=== PATIENT | female | born 1940 | race Caucasian/White ===

== ENCOUNTER 2020-03-22 08:33 | Outpatient (CLI) | payer MEDICARE, OTHER, SELFPAY ==
--- NOTE | ~2020-03-22 | MR_ITS ---
EXAMINATION: MR brain/brain stem wo con EXAM DATE: 03/22/2020 10:18 INDICATION: Dizziness. Lightheadedness, syncope. TECHNIQUE: Magnetic resonance imaging (MRI) of the brain/brain stem obtained without contrast. Sagitt al T1, axial diffusion, gradient echo (T2*), T1, T2, FLAIR sequences obtained. There is no prior st udy for comparison. FINDINGS: There are no areas of restricted diffusion to suggest acute infarction. There is no acute hemorrhage seen on the T2*, a hemosiderin sensitive sequence. No intraparenchymal brain mass lesion. There is mild to moderate periventricular and subcortical T2/FLAIR signal hyperintensity, nonspecifi c but probably related to small vessel ischemic disease (microangiopathy). There is ventricular pro minence out of proportion to sulci which is suspected most likely central atrophy rather than hydroce phalus. Normal pressure hydrocephalus cannot be excluded (clinical triad ataxia/gait disturbance, de mentia, urinary incontinence). There are no extra-axial collections. Flow voids are seen in the ce rebral arteries on the T2-weighted sequences consistent with their expected patency, however there is diminutive caliber to the right internal carotid artery. Patient has had bilateral ocular lens surg harlan. Soft tissue is unremarkable. IMPRESSION: 1. Asymmetric, diminutive caliber to the right internal carotid artery; recommend carotid ultrasound for further evaluation. 2. Dilated ventricles most likely central atrophy. NPH not excludable. 3. 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 Reviewed, dictated and finalized at location B. IMPRESSION: 1. Asymmetric, diminutive caliber to the right internal carotid artery; recomm end carotid ultrasound for further evaluation. 2. Dilated ventricles most likely central atrophy. NPH not excludable. 3. 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
== END 2020-03-22 08:34 | disposition home or self-care (01) ==
LOC: ANHIMG 08:47
DX: R55 Syncope and collapse (principal); R93.0 Abnormal findings on diagnostic imaging of skull and head, not elsewhere classified
CPT/HCPCS: 70551

== ENCOUNTER → 2020-10-26 13:13 | Outpatient (CLI) | payer MEDICARE, OTHER, SELFPAY ==
--- NOTE | ~2020-10-26 | MM_ITS ---
EXAMINATION: MM screening amelia LT w ruy HISTORY: Screening mammogram, history of right mastectomy and reported left breast excisional biopsy TECHNIQUE: Craniocaudal and mediolateral oblique 3-D tomosynthesis images were obtained and synthetic 2-D images were generated. CAD analysis was submitted and interpreted. COMPARISON: No prior mammogram is available for comparison at this institution. BREAST PARENCHYMAL COMPOSITION: There are scattered areas of fibroglandular density. FINDINGS: Architectural distortion is present in the upper outer quadrant of the breast with associat ed skin retraction. No suspicious calcification is identified. IMPRESSION: 1. Architectural distortion in the upper outer quadrant of the left breast which is likely related to prior excisional biopsy. 2. Comparison with prior mammograms is necessary. BI-RADS Category 0: Incomplete: Needs comparison with prior mammograms. Reviewed, dictated and finalized at location A. ET EXAMINER IMPRESSION: 1. Architectural distortion in the upper outer quadrant of the left breast whic h is likely related to prior excisional biopsy. 2. Comparison with prior mammograms is necessary. BI-RADS Category 0: Incomplete: Needs comparison with prior mammograms.
--- NOTE | ~2020-10-26 | DEXA_ITS ---
Bone Density Report Name: Bela Spangler Age: 80 Sex: Female Ethnicity: White Date of : 1940 Indication: postmenopausal; screening for osteoporosis; height loss; hysterectomy; Referring Provider: OSMANY CUNNINGHAM Study: Bone densitometry was performed. Exam Date: October 26, 2020 Accession number: [id number] Bone Density: Region BMD T-score Z-score Classification AP Spine (L1-L4) 0.831 -2.0 0.8 Osteopenia Femoral Neck (Left) 0.581 -2.4 -0.1 Osteopenia Total Hip (Left) 0.712 -1.9 0.2 Osteopenia Femoral Neck (Right) 0.623 -2.0 0.3 Osteopenia Total Hip (Right) 0.692 -2.0 0.1 Osteopenia Total Hip Mean 0.702 -2.0 0.2 Osteopenia World Health Organization criteria for BMD impression classify patients as: Normal (T-score at or above -1.0), Osteopenia (T-score between -1.0 and -2.5), or Osteoporosis (T-score at or below -2.5). 10-year Fracture Risk(1): Major Osteoporotic Fracture 18% Hip Fracture 5.9% Reported Risk Factors: [place] (), Neck BMD=0.581, BMI=28.1 (1) FRAX(R) Version 3.08. Fracture probability calculated for an untreated patient. Fracture probability may be lower if the patient has received treatment. Clinical Information Provided by Patient: Has used the following medications: Vitamin D, Calcium, MTV Has the following medical conditions: Hysterectomy, breast cancer in 2007 and 2018 Patient maximum height was 62 Menopause Age: 34 No regular weight bearing exercise Onset of menses at age 11 Number of children 3 Impression: The patient has low bone mass, based on the Left Femoral Neck T-score. The patient has an estimated ten-year risk of hip fracture of 5.9% and an estimated ten-year risk of major fracture of 18%, based on the WHO FRAX algorithm. Discussion: BONE DENSITY IS LOW AT ONE OR MORE SKELETAL SITES. THE PATIENT'S BMD AND CLINICAL RISK FACTORS CONTRIBUTE TO THIS PATIENT'S INCREASED RISK OF FRACTURE. This patient's lowest T-score is low at one or more skeletal sites. It meets the World Health Organization's (WHO) criteria for ?low bone mass? (T-score between -1.0 and -2.5). The patient's 10-year risk of hip fracture as calculated by FRAX exceeds the threshold where pharmacological therapy is recommended by the National Osteoporosis Foundation (NOF). However, all treatment decisions require clinical judgment and consideration of individual patient factors, including patient preferences, comorbidities, previous drug use, risk factors not captured in the FRAX model (e.g., frailty, falls, vitamin D deficiency, increased bone turnover, interval significant decline in bone density) and possible under or overestimation of fracture risk by FRAX. The patient should follow a healthful lifestyle (good nutrition with adequate calcium and vitamin D, and appropriate weight-bear
== END ==
PROVIDERS: PCP Emergency Medicine; Visit Provider Emergency Medicine
DX: Z12.31 Encounter for screening mammogram for malignant neoplasm of breast (principal); Z78.0 Asymptomatic menopausal state; M85.89 Other specified disorders of bone density and structure, multiple sites; R92.8 Other abnormal and inconclusive findings on diagnostic imaging of breast
CPT/HCPCS: 77063; 77067; 77080

== ENCOUNTER 2021-04-23 09:53 | Emergency (ER) | payer MEDICARE, SELFPAY ==
[2021-04-23] VITALS (8 sets, daily range): BP systolic 159–176; BP diastolic 61–91; PULSE 71–84; RESP 12–19; O2SAT 90–98
--- NOTE | ~2021-04-23 | CT_ITS ---
EXAMINATION: CT cervical spine wo con DATE: 04/23/2021 11:40 INDICATION: Neck pain post fall TECHNIQUE: Computed tomography (CT) of the cervical spine was performed without intravenous contrast. Automated exposure control and iterative reconstruction technique were employed. The dose-length pro duct was 151.23 mGy-cm. COMPARISON: None FINDINGS: Cervical dextrocurvature. Sagittal alignment is normal. 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 Vertebral body heights are normal. No fracture. Mild to moderate disc height loss at C4-C5 and C6-C7, both with posterior disc osteophyte complexes resulting in mild central canal stenosis. M ild disc height loss at C2-C3, C3-C4 and C6-C7. Multilevel severe facet osteoarthritis throughout the left side of the cervical spine and moderate to severe facet osteoarthritis at the right side of the cervical spine. Multilevel mild bilateral cervical neural foraminal stenosis. Atherosclerotic calcif ications along the bilateral carotid arteries. Cervical soft tissues are otherwise unremarkable. Mild emphysema and mild pleural parenchymal scarring at the bilateral apices. IMPRESSION: 1. Mild cervical dextrocurvature with moderate spondylosis. No acute osseous abnormality. 2. Mild emphysema. Reviewed, dictated and finalized at location A. IMPRESSION: 1. Mild cervical dextrocurvature with moderate spondylosis. No acute osseous ab normality. 2. Mild emphysema.
--- NOTE | ~2021-04-23 | CT_ITS ---
EXAMINATION: CT chest abdomen pelvis w con DATE: 04/23/2021 13:31 INDICATION: Rib fracture post fall TECHNIQUE: Computed tomography (CT) of the chest, abdomen, and pelvis was performed with 100 mL Omnip aque-350 intravenous contrast. Automated exposure control and iterative reconstruction technique were employed. The dose-length product was 781.12 mGy-cm. COMPARISON: None FINDINGS: CHEST CT: Mild emphysema. 12 mm groundglass nodule in the left upper lobe. Approximately 1.6 x 0.9 cm nodule wi th spiculated margins and mild surrounding groundglass opacity in the right upper lobe. Additional 4 mm left lower lobe nodule. No pulmonary edema, pleural effusion or pneumothorax. Heart size is normal . Atherosclerotic coronary artery calcification. No pericardial effusion. Thoracic aorta is normal in caliber with no dissection or traumatic aortic injury is severe >70% stenosis at the origin of the i nnominate artery. No pathologically enlarged abdominal or pelvic lymphadenopathy. Moderate-sized slid ing-type hiatal hernia. Minimally displaced fracture at the anterolateral left third rib. Possible no ndisplaced anterolateral left second and fourth rib fractures. Postoperative change of prior right ma stectomy and right axillary lymph node dissection. Thoracic dextroscoliosis with mild to moderate spo ndylosis. ABDOMEN/PELVIS CT: Multiple gallstones within the decompressed gallbladder. No pericholecystic inflammatory change to sinha ggest acute cholecystitis. Liver, spleen, pancreas and bilateral adrenal glands are normal. Bilateral renal cysts the largest on the right measuring 1.9 cm. There is moderate colonic diverticulosis with a sigmoid predominance. There is no adjacent inflammatory change to suggest diverticulitis. There i s a small thickening the distal ileum without surrounding inflammatory stranding which could be relat ed to an ileitis either acute or chronic. No bowel obstruction. The appendix is not visualized. No pe ricecal inflammatory change to suggest acute appendicitis. Bladder is normal. The uterus is not ident ified and has likely been surgically resected. Lumbar levoscoliosis with mild to moderate spondylosis . IMPRESSION: 1. Minimally displaced left third rib fracture with possible nondisplaced fracture of the adjacent se cond and fourth ribs. No pneumothorax. 2. 1.6 x 0.9 cm nodule with surrounding groundglass opacity in the right upper lobe and 12 mm groundg lass nodule in the left upper lobe. Differential includes infectious/inflammatory etiologies as well as malignancy. Recommend 3 month follow-up chest CT. 3. Moderate-sized sliding-type hiatal hernia. 4. Cholelithiasis. 5. Wall thickening in the distal ileum without surrounding inflammatory stranding which could represe nt an ileitis either acute or chronic and which could be either infectious, inflammatory or less like ly ischemic in etiology. 6. Diverticulosis. 7. 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 8. Mild emphysema. Reviewed, dictated and finalized at location A. IMPRESSION: 1. Minimally displaced left third rib fracture with possible nondisplaced fract ure of the adjacent second and fourth ribs. No pneumothorax. 2. 1.6 x 0.9 cm nodule with surrounding groundglass opacity in the right upper lobe and 12 mm groundglass nodule in the left upper lobe. Differential includes infectious/inflammatory etiologies as well as malignancy. Recommend 3 month fo llow-up chest CT. 3. Moderate-sized sliding-type hiatal hernia. 4. Cholelithiasis. 5. Wall thickening in the distal ileum without surrounding inflammatory strandi ng which could represent an ileitis either acute or chronic and which could be either infectious, inflammatory or less likely ischemic in etiology. 6. Dive
--- NOTE | ~2021-04-23 | XR_ITS ---
EXAMINATION: [id number]_CR DATE: 04/23/2021 11:49 INDICATION: Anterolateral left rib pain post fall TECHNIQUE: A frontal inspiratory view of the chest and 3 views of the left ribs were obtained. COMPARISON: None FINDINGS: Minimally displaced fractures of the anterolateral left second-fifth ribs. No other fractures identif ied. Lungs are clear with no focal airspace opacities, pulmonary edema, pleural effusion or pneumotho rax. Heart size is within normal limits for AP technique. Tortuous atherosclerotic thoracic aorta. S- shaped thoracolumbar scoliosis with mild spondylosis. Postoperative change of likely right breast exc isional biopsy with multiple surgical clips. IMPRESSION: 1. Minimally displaced left second-fifth rib fractures. 2. No pneumothorax or other acute cardiopulmonary disease. Reviewed, dictated and finalized at location A.
--- NOTE | ~2021-04-23 | CT_ITS ---
EXAMINATION: CT brain wo con DATE: 04/23/2021 11:40 INDICATION: Fall with head injury TECHNIQUE: Computed tomography (CT) of the head was performed without intravenous contrast. Sagittal and coronal reconstructions were performed. The mA was adjusted according to patient size. Iterative reconstruction technique was employed. The dose-length product was 605.33 mGy-cm. COMPARISON: MR dated 03/22/2020 FINDINGS: Small left frontal scalp hematoma. No fracture. No acute intracranial hemorrhage, acute infarction or abnormal extra axial fluid collection. There is mild scattered white matter hypoattenuation consiste nt with chronic small vessel ischemic disease. Unchanged enlargement of the ventricles which is dispr oportionate to the sulci with differential including moderate central predominant atrophy or normal p ressure hydrocephalus. No mass/mass effect. Changes of bilateral intraocular lens replacement. Status post left mastoidectomy. Unchanged small right mastoid effusion. The orbitsand paranasal sinuses are normal. Intracranial calcified cerebral atherosclerosis is noted. IMPRESSION: 1. No calvarial fracture or acute intracranial process. 2. Unchanged symmetric dilation of ventricles disproportionate to the sulci which could be related to central predominant atrophy or normal pressure hydrocephalus (NPH: clinical triad ataxia/gait distur bance, dementia, urinary incontinence). 3. Mild scattered white matter hypoattenuation consistent with chronic small vessel ischemic disease. Reviewed, dictated and finalized at location A. IMPRESSION: 1. No calvarial fracture or acute intracranial process. 2. Unchanged symmetric dilation of ventricles disproportionate to the sulci whi ch could be related to central predominant atrophy or normal pressure hydroceph alus (NPH: clinical triad ataxia/gait disturbance, dementia, urinary incontinen ce). 3. Mild scattered white matter hypoattenuation consistent with chronic small ve ssel ischemic disease.
--- NOTE | 2021-04-23 10:05 | ECG_ITS ---
Measurements Intervals [place] Rate: 80 P: 26 AR: 144 QRS: -32 QRSD: 102 T: 119 QT: 391 QTc: 452 Interpretive Statements SINUS RHYTHM LEFT AXIS DEVIATION LEFT VENTRICULAR HYPERTROPHY AND ST-T CHANGE BORDERLINE T WAVE ABNORMALITY- LATERAL LEADS BASELINE ARTIFACT- I, II, III, AVR, AVF, V3-V6 BORDERLINE ECG Electronically Signed On 04-23-2021 11:47:27 CDT by Missael Bradley D.O.
[2021-04-23 10:25] LABS: Basophils Percent Auto 0.4 % (0.2-1.2); Eosinophils Absolute Auto 0.3 K/mm3 (0-0.3); Hematocrit 45.4 % (37.0-47.0); Hemoglobin 14.7 g/dL (12.0-15.0); Immature Granulocyte Absolute 0.06 K/mm3 (0.00-0.031); Immature Granulocyte Percent A 0.6 % (0-0.5); Lymphocytes Absolute Auto 0.82 K/mm3 (0.9-3.2); Lymphocytes Percent Auto 7.7 % (18.3-44.2); Mean Corpuscular HGB Conc 32.4 g/dl (32-36); Mean Corpuscular Volume 89.5 fl (80-100); Monocytes Absolute Auto 0.7 K/mm3 (0.1-0.6); Monocytes Percent Auto 6.7 % (2.6-8.5); Neutrophils Absolute Auto 8.7 K/mm3 (1.3-6.7); Neutrophils Percent Auto 81.6 % (45.5-73.1); Platelet Count Result 184 k/mm3 (150-375); Red Blood Count 5.07 M/mm3 (4.2-5.4); Red Cell Distribution Width 11.9 % (11.5-14.5); White Blood Count 10.6 K/mm3 (4.5-10.0)
[2021-04-23 10:58] LABS: Anion Gap 13 mmol/L (8-16); Blood Urea Nitrogen 8 mg/dL (7-17); Calcium 10.9 mg/dL (8.4-10.2); Carbon Dioxide 29 mmol/L (22-30); Chloride 99 mmol/L (98-107); Estimated CRCL calculation 55 ml/min; Estimated Glomerular Filt Rate > 60; Glucose 157 mg/dL (65-110); Potassium 3.8 mmol/L (3.4-5.0); Sodium 141 mmol/L (137-145)
--- NOTE | 2021-04-23 11:30 | ED.GENADULT ---
HPI - General Adult General Chief complaint: Fall Stated complaint: fall - head pain, thumb pain Time Seen by Provider: 04/23/21 10:18 Source: patient History of Present Illness HPI narrative: Patient is a 80 y/o female complaining of a fall about 5 hours ago in the bathroom. She states that she fell and landed on her left side. She states that she fell because she bent over to pull her pants and lost balance. She hit her head on the ground. She also has some neck pain and left rib pain. She describes her rib pain as sharp and rates it as 8/10. Her pain is worse with movement. She also has some chronic back pain unchanged from baseline. She has no abdominal pain. She had brief loss of consciousness after the fall. She was able to get up on her own after the fall. She is able to ambulate without assistance since the fall. She has no focal weakness or numbness. Related Data Home Medications Medication Instructions Recorded Confirmed aspirin 81 mg tablet,delayed See Rx Instructions .ROUTE .COMPLEX 04/12/20 08/23/20 release atorvastatin 40 mg tablet See Rx Instructions .ROUTE .COMPLEX 04/12/20 08/23/20 calcium 600 mg-D3 800 unit-mag11 See Rx Instructions .ROUTE .COMPLEX 04/12/20 08/23/20 50 hq-kuqp-hnvgis-stephan-s.borat tablet cholecalciferol (vitamin D3) 25 See Rx Instructions .ROUTE .COMPLEX 04/12/20 08/23/20 mcg (1,000 unit) capsule ferrous sulfate 325 mg (65 mg See Rx Instructions .ROUTE .COMPLEX 04/12/20 08/23/20 iron) tablet multivitamin See Rx Instructions .ROUTE .COMPLEX 04/12/20 08/23/20 Allergies Allergy/AdvReac Type Severity Reaction Status Date / Time latex Allergy Unknown Unknown Verified 04/23/21 10:18 neomycin Allergy Unknown Unknown Verified 04/23/21 10:18 Review of Systems Constitutional: Constitutional: Reports as per HPI, Denies chills, Denies fever(s), Denies headache(s) and Denies weakness Eyes: Eyes: Denies blurry vision ENT: Reports headache(s) and Reports neck pain Cardiovascular: Cardiovascular: Denies chest pain and Denies dyspnea Respiratory: Respiratory: Reports as per HPI, Denies cough and Denies dyspnea Gastrointestinal: Gastrointestinal: Denies abdominal pain, Denies diarrhea, Denies nausea and Denies vomiting Genitourinary: Genitourinary: Denies hematuria and Denies dysuria Musculoskeletal: Musculoskeletal: Reports back pain and Reports neck pain Neurologic: Reports headache(s) and Denies weakness [facility] Past Medical History Medical History (Updated 04/23/21 @ 15:08 by Priya Garcia MD) Clotting disorder (~2003) FH: carotid endarterectomy (~03/09/15) Hernia (~2005) Surgical History Surgical History H/O bladder repair surgery (~2005) H/O right mastectomy (~2007) H/O: hysterectomy (~1974) History of breast lump removal (~1983) History of removal of both ovaries (~1984) Family History Family History Father , 73 Heart abnormality Mother , 49 Cancer Social History Social History Social History: 1 cup of coffee per day Smoking status: Former smoker Smoking end date: 09/23/14 Alcohol intake: never Substance use: never Gender identity (if verbalized by the patient): Female Exam Const: General: no acute distress and well developed Orientation/consciousness: oriented to person, oriented to place, oriented to time and patient oriented x3 HENMT: Head: normocephalic and hematoma left frontal Ears: external ears normal General nose exam: Normal external nose present Eyes: General: appearance normal, both eyes and all related structures Conjunctivae: conjunctivae normal Neck: Neck: normal visual inspection and full ROM Chest: Chest palpation & inspection: normal inspection of the chest and tenderness rib (left side) Resp: Effort & Inspection: normal respiratory effort
[2021-04-23] MEDS: traMADol HCL (*CRX) 50 MG TABLET PO (13:45)
[2021-04-23] MEDS: TETANUS,DIPHTHERIA,AC PERTUSSIS ADULT (0.5 ML) BOOSTRIX IM (13:45)
== END 2021-04-23 15:50 | disposition home or self-care (01) ==
PROVIDERS: Emergency Provider Emergency Medicine; PCP Emergency Medicine
DX: S22.42XA Multiple fractures of ribs, left side, initial encounter for closed fracture (principal); S00.83XA Contusion of other part of head, initial encounter; I70.8 Atherosclerosis of other arteries; Z23 Encounter for immunization; I10 Essential (primary) hypertension; E78.00 Pure hypercholesterolemia, unspecified; Z85.3 Personal history of malignant neoplasm of breast; Z90.11 Acquired absence of right breast and nipple; Z87.891 Personal history of nicotine dependence; R94.31 Abnormal electrocardiogram [ECG] [EKG]; I51.7 Cardiomegaly; M47.812 Spondylosis without myelopathy or radiculopathy, cervical region; J43.9 Emphysema, unspecified; R91.1 Solitary pulmonary nodule; K80.20 Calculus of gallbladder without cholecystitis without obstruction; K44.9 Diaphragmatic hernia without obstruction or gangrene; K57.90 Diverticulosis of intestine, part unspecified, without perforation or abscess without bleeding; Z79.82 Long term (current) use of aspirin; W01.0XXA Fall on same level from slipping, tripping and stumbling without subsequent striking against object, initial encounter
CPT/HCPCS: 36415; 70450; 71101; 71260; 72125; 74177; 80048; 85025; 90471; 90715; 93005; 96372; 99284; A9270; Q9967

== ENCOUNTER 2021-08-29 09:38 | Outpatient (CLI) | payer MEDICARE, SELFPAY ==
--- NOTE | ~2021-08-29 | US_ITS ---
EXAMINATION: US thyroid DATE: 08/29/2021 10:03 INDICATION: Other specified abnormal findings of blood chemistry. TECHNIQUE: Multiple ultrasound images of the thyroid were obtained. COMPARISON: None. FINDINGS: The right thyroid lobe measures 2.9 x 1.9 x 1.4 cm. The left thyroid lobe measures 3.0 x 0.9 x 1.2 c m. In the right thyroid lobe, there is a 6 mm solid, very hypoechoic, rhdrz-wuxh-aqcz nodule with sm ooth margin with punctate echogenic focus (TI-RADS TR5). In the right thyroid lobe, there is a 5 mm s olid, very hypoechoic, wider than tall nodule with lobulated margin and punctate echogenic focus (TR5 ). There are multiple nodules smaller than 5 mm. IMPRESSION: 1. Small thyroid nodules. Consider thyroid ultrasound in one year if clinically indicated given the p atient's age. Reviewed, dictated and finalized at location A. WAY YARD ASSISTANT IMPRESSION: 1. Small thyroid nodules. Consider thyroid ultrasound in one year if clinically indicated given the patient's age.
== END 2021-08-29 09:39 | disposition home or self-care (01) ==
LOC: ANHIMG 09:40
PROVIDERS: PCP Emergency Medicine; Visit Provider Emergency Medicine
DX: R79.89 Other specified abnormal findings of blood chemistry (principal); E04.2 Nontoxic multinodular goiter
CPT/HCPCS: 76536

== ENCOUNTER 2022-09-09 18:43 | Inpatient (IN) | payer MEDICARE, OTHER, SELFPAY ==
--- NOTE | ~2022-09-09 | CT_ITS ---
EXAMINATION: CT cervical spine wo con DATE: 09/09/2022 20:13 INDICATION: Syncopal episode and fall with head injury TECHNIQUE: Computed tomography (CT) of the cervical spine was performed without intravenous contrast. Automated exposure control and iterative reconstruction technique were employed. The dose-length pro duct was 112.34 mGy-cm. COMPARISON: None FINDINGS: 15 degrees lower cervical dextrocurvature and likely similar degree of upper thoracic levocurvature. Sagittal alignment is normal. Vertebral body heights are normal. No fractures. Severe osteoarthritis at the atlantoaxial articulation and at the articulation of the lateral mass of C1 and C2. Moderate d isc height loss at C4-C5 with small posterior disc osteophyte complex resulting in mild central canal stenosis at this level. Mild left-sided disc height loss at C5-C6 and C6-C7. Severe uncovertebral os teoarthritis on the left at C4-C5. Mild to moderate uncovertebral osteoarthritis at multiple addition al lesions in the cervical spine. Multilevel severe left-sided and moderate to severe right-sided cer vical facet osteoarthritis. This contributes to moderate neural foraminal stenosis on the left at C3- C4 and mild neural foraminal stenosis at a few additional levels throughout the cervical spine at bot h the left and right. Mild biapical pleural-parenchymal scarring. Atherosclerotic calcification at th e bilateral carotid bulbs. Sialolithiasis with multiple small punctate calcifications in the bilatera l parotid glands. Cervical soft tissues are otherwise unremarkable. IMPRESSION: 1. Mild cervical dextrocurvature with moderate spondylosis but without acute osseous abnormality. Reviewed, dictated and finalized at location A. RAL STERILE TECHNICIAN IMPRESSION: 1. Mild cervical dextrocurvature with moderate spondylosis but without acute os seous abnormality.
--- NOTE | ~2022-09-09 | CT_ITS ---
EXAMINATION: CT brain wo con DATE: 09/10/2022 03:10 INDICATION: Acute subarachnoid hemorrhage. TECHNIQUE: Computed tomography (CT) of the head was performed without intravenous contrast. The mA wa s adjusted according to patient size. Iterative reconstruction technique was employed. The dose-lengt h product was 681.00 mGy-cm. COMPARISON: Head CT 09/09/2022 FINDINGS: There are scattered areas of low attenuation in the cerebral white matter. Again seen is ac [place] subarachnoid hemorrhage anterior to right frontal lobe. There is no acute ischemic infarct or abn ormal mass lesion. The ventricles are normal in size. The paranasal sinuses are clear. There are like ly changes of ocular lens replacement surgeries. There are changes of left mastoidectomy. There is a right otomastoid effusion. There is a right frontal scalp laceration. IMPRESSION: 1. Stable small volume of acute subarachnoid hemorrhage anterior to right frontal lobe. 2. Stable mild nonspecific cerebral white matter disease, which likely represents chronic small vesse l ischemic disease. Reviewed, dictated and finalized at location A. OF INSTRUCTION IMPRESSION: 1. Stable small volume of acute subarachnoid hemorrhage anterior to right front al lobe. 2. Stable mild nonspecific cerebral white matter disease, which likely represen ts chronic small vessel ischemic disease.
--- NOTE | ~2022-09-09 | XR_ITS ---
EXAMINATION: XR chest 1V portable DATE: 09/09/2022 23:21 INDICATION: Syncope. TECHNIQUE: A single frontal view of the chest was obtained. COMPARISON: Chest single view 04/23/2021, chest CT 04/23/2021 FINDINGS: The patient is rotated to her left. There is mild scarring at the lung apices. There are ch ronic airspace opacities in peripheral right midlung zone, consistent with scarring. There are airspa ce opacities in the lower lung zones. No pleural effusion or pneumothorax. Cardiomegaly is noted. The re is a moderate-sized hiatal hernia. There are surgical clips in right chest wall. IMPRESSION: 1. Airspace opacities in the lower lung zones, consistent with atelectasis/scarring versus pneumonia. 2. Stable scarring at the lung apices and in lateral right midlung zone. 3. Moderate-sized hiatal hernia. 4. Cardiomegaly. Reviewed, dictated and finalized at location A. STMAS TREE FARM MANAGER IMPRESSION: 1. Airspace opacities in the lower lung zones, consistent with atelectasis/scar ring versus pneumonia. 2. Stable scarring at the lung apices and in lateral right midlung zone. 3. Moderate-sized hiatal hernia. 4. Cardiomegaly.
--- NOTE | ~2022-09-09 | CT_ITS ---
EXAMINATION: CTA BRAIN/CAROTID DATE: 09/10/2022 14:34 INDICATION: Syncope TECHNIQUE: Computed tomographic angiography (CTA) of the head and neck was performed with 100 mL Omni paque-350 intravenous contrast. Multiplanar reconstructions and maximum intensity projection 3D-recon structions of the carotid arteries and of the intracranial arteries were created by the technologist on a separate workstation. Precontrast CT of the head was also obtained. Automated exposure control and iterative reconstruction technique were employed.The dose-length product was 987.63 mGy-cm. COMPARISON: None. FINDINGS: Carotid arteries: Normal caliber aortic arch with no aneurysm, dissection or hemodynamically significant stenosis. Ther e is a likely near occlusion stenosis with no discernible contrast filled lumen at the origin but tin y contrast opacified lumen more distally extending to the bifurcation into the right common iliac and right subclavian arteries were there is additional atherosclerotic plaque with moderate 50-69% steno sis. Scattered atherosclerotic plaque without hemodynamically significant stenosis along the left com mon carotid artery. There is 60% stenosis of the right carotid bulb relative to normal distal artery lumen diameter (NASCET criteria). There is small amount of atherosclerotic plaque with 0% stenosis of the left carotid bulb relative to normal distal artery lumen diameter. Left vertebral artery is gurpreet nant. Multifocal moderate stenosis along the proximal right vertebral artery. Cervical soft tissues a re unremarkable. Mild emphysema in the visualized upper lungs. Persistent curved subpleural bandlike opacity at the periphery of the right upper lobe, the cephalad portion of which appears unchanged but with some more caudal extension. Moderate cervical spondylosis. Intracranial arteries Left vertebral artery is dominant. There is multifocal moderate 50-69% stenosis of the intracranial r ight vertebral artery. Small amount of atherosclerotic plaque without hemodynamically significant fred nosis along the intracranial left vertebral artery. There is no hemodynamically significant stenosis in the basilar artery. Multifocal atherosclerotic plaque at the bilateral carotid siphons without hem odynamically significant stenosis. 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 For reference the cephalad extracranial portion of the left internal carotid artery measures up to 5 mm in maximal diameter. The bilateral A1 and P1 segments are patent. Cerebral hipolito rial arborization appears symmetric. IMPRESSION: 1. 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 2. 60% stenosis of the right carotid bulb relative to normal distal artery lumen diameter (NASCET cri teria). 2. Small amount of atherosclerotic plaque with 0% stenosis of the left carotid bulb relative to kiley l distal artery lumen diameter. 3. Left vertebral artery is dominant with multifocal moderate stenosis along the proximal extracrania l right as well as the intracranial right vertebral artery. 4. 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 5. Mild emphysema with increase in the caudal aspect of a curved bandlike subpleural opacity at the p eriphery of the right upper lobe. The configuration and pattern of progression favoring atelectasis/s carring over malignancy but would consider PET/CT for further evaluation. Reviewed, dic
--- NOTE | ~2022-09-09 | US_ITS ---
EXAMINATION: US carotid duplex BI DATE: 09/10/2022 14:25 INDICATION: Syncope TECHNIQUE: Grayscale, color Doppler, and pulsed Doppler images of the cervical carotid arteries were obtained. The degree of vessel stenosis is placed in one of the following categories: normal, <50%, 5 0-69%, >=70% but less than near-occlusion, near-occlusion, or total occlusion. Note that percent sten osis relative to normal distal artery lumen diameter is indirectly measured from velocity measurement s as described by Hansel, et al. Radiology 2003; 229:340-346. COMPARISON: None. FINDINGS: RIGHT: The right common carotid artery (CCA) peak systolic velocity (PSV) is 53 cm/s. The right internal car otid artery (ICA) PSV is 100 cm/s. The right ICA end-diastolic velocity (EDV) is 32 cm/s. The right I CA/CCA PSV ratio is 1.9. Grayscale and color Doppler images yield an estimate of <50% diameter reduct ion from plaque in the ICA. The external carotid artery (ECA) PSV is 82 cm/s. There is antegrade flow in the right vertebral artery. LEFT: The left CCA PSV is 232 cm/s. There is extensive atherosclerotic plaque throughout the right common c arotid artery which demonstrates parvus and tardus waveforms with widened systolic peaks suggesting m ore proximal hemodynamically significant stenosis. The left ICA PSV is 183 cm/s. The left ICA EDV is 35 cm/s. The left ICA/CCA PSV ratio is 0.8. Grayscale and color Doppler images including secondary Do ppler criteria yield an estimate of <50% diameter reduction from plaque in the ICA. The elevated [place] in the left common and internal carotid arteries may be due to the likely significant stenosis at the contralateral right common carotid artery. The ECA PSV is 269 cm/s. There is antegrade flow i n the left vertebral artery. IMPRESSION: 1. <50% stenosis in the right internal carotid artery. 2. <50% stenosis in the left internal carotid artery. 3. Prominent atherosclerotic plaque with parvus and tardus waveforms in the mid right common carotid artery suggesting a more proximal hemodynamically significant stenosis. Reviewed, dictated and finalized at location B. WEAVER IMPRESSION: 1. <50% stenosis in the right internal carotid artery. 2. <50% stenosis in the left internal carotid artery. 3. Prominent atherosclerotic plaque with parvus and tardus waveforms in the mid right common carotid artery suggesting a more proximal hemodynamically signifi cant stenosis.
--- NOTE | ~2022-09-09 | CT_ITS ---
EXAMINATION: CT brain wo con DATE: 09/09/2022 20:13 INDICATION: Syncopal episode with fall and head injury with laceration to the right forehead TECHNIQUE: Computed tomography (CT) of the head was performed without intravenous contrast. Sagittal and coronal reconstructions were performed. The mA was adjusted according to patient size. Iterative reconstruction technique was employed. The dose-length product was 605.33 mGy-cm. COMPARISON: head CT dated 04/23/21 FINDINGS: Small right frontal scalp hematoma with laceration along the superolateral right orbital rim. No frac ture. Changes of bilateral intraocular lens replacement. Orbits are otherwise unremarkable. Small sub arachnoid hemorrhage along a gyrus in the anterior right frontal lobe immediately underlying the andrzej on of trauma. No acute intracranial acute infarction. There is mild scattered white matter hypoattenu ation consistent with chronic small vessel ischemic disease. Unchanged enlargement of the ventricles which is disproportionate to the sulci with differential including moderate central predominant atro phy or normal pressure hydrocephalus. No mass/mass effect. Status post left mastoidectomy. Unchanged small right mastoid effusion. Paranasal sinuses are normal. Intracranial calcified cerebral atheroscl erosis is noted. IMPRESSION: 1. Small subarachnoid hemorrhage along a gyrus of the anterior right frontal lobe. Dr. Wei discussed these findings with Dr. Crawley at 8:20 PM. 2. Unchanged symmetric dilation of ventricles disproportionate to the sulci which could be related to central predominant atrophy or normal pressure hydrocephalus (NPH: clinical triad ataxia/gait distur bance, dementia, urinary incontinence). 3. Mild scattered white matter hypoattenuation consistent with chronic small vessel ischemic disease. Reviewed, dictated and finalized at location A. CENTER RN IMPRESSION: 1. Small subarachnoid hemorrhage along a gyrus of the anterior right frontal lo be. Dr. Wei discussed these findings with Dr. Crawley at 8:20 PM. 2. Unchanged symmetric dilation of ventricles disproportionate to the sulci whi ch could be related to central predominant atrophy or normal pressure hydroceph alus (NPH: clinical triad ataxia/gait disturbance, dementia, urinary incontinen ce). 3. Mild scattered white matter hypoattenuation consistent with chronic small ve ssel ischemic disease.
--- NOTE | ~2022-09-09 | XR_ITS ---
EXAMINATION: XR wrist RT 2V DATE: 09/09/2022 23:14 INDICATION: Right wrist pain. Fall. TECHNIQUE: 2 views of right wrist were obtained. COMPARISON: None. FINDINGS: Bone alignment is normal. There is diffuse osteopenia. No fracture. There is severe osteoar thritis of distal radioulnar joint and first carpometacarpal joint. IMPRESSION: 1. Polyarticular osteoarthritis. Reviewed, dictated and finalized at location A. NISTRATIVE JUDGE
[2022-09-09 18:47] VITALS: BP 137/61; PULSE 68; RESP 18; TEMP 36.4; O2SAT 100
--- NOTE | 2022-09-09 19:54 | PC.NURSE ---
multiple lacs to pt forehead, dressing placed.
[2022-09-09 20:45] VITALS: BP 215/66; PULSE 72; RESP 16; O2SAT 98
[2022-09-09 21:13] VITALS: BP 208/77; PULSE 71; RESP 20; O2SAT 96
--- NOTE | 2022-09-09 21:14 | ED.SYNCOPE ---
HPI - Syncope General Chief Complaint: Syncope <Luis Daniel Crawley MD - Last Filed: 09/12/22 19:20> Stated Complaint: fall <Luis Daniel Crawley MD - Last Filed: 09/12/22 19:20> Time Seen by Provider: 09/09/22 20:40 <Luis Daniel Crawley MD - Last Filed: 09/12/22 19:20> Source: patient, family and EMS <Luis Daniel Crawley MD - Last Filed: 09/12/22 19:20> Mode of arrival: EMS <Luis Daniel Crawley MD - Last Filed: 09/12/22 19:20> Limitations: no limitations <Luis Daniel Crawley MD - Last Filed: 09/12/22 19:20> History of Present Illness HPI narrative: Patient is 81 years old white female stood up out of her couch at home and the next thing she knew she was on the floor covered with blood coming from the right forehead. She complaining of pain at the right wrist and right knee. Patient on aspirin, no anticoagulant medication. History of hypertension, hyperlipidemia, COPD not on oxygen, hypothyroidism breast cancer currently on hormonal therapy. Patient is DNR. She denies any focal neurodeficit <Luis Daniel Crawley MD - Last Filed: 09/12/22 19:20> Related Data Home Medications: Home Medications Medication Instructions Recorded Confirmed aspirin 81 mg tablet,delayed 81 mg PO DAILY 04/12/20 09/10/22 release (Enteric Coated Aspirin) atorvastatin 40 mg tablet 40 mg PO DAILY 04/12/20 09/10/22 cholecalciferol (vitamin D3) 25 1,000 unit PO DAILY 04/12/20 09/10/22 mcg (1,000 unit) capsule ferrous sulfate 325 mg (65 mg 325 mg PO DAILY 04/12/20 09/10/22 iron) tablet multivitamin 1 tablet PO DAILY 04/12/20 09/10/22 albuterol sulfate 90 mcg/actuation See Rx Instructions .Route .COMPLEX 08/08/21 09/10/22 aerosol inhaler abemaciclib 150 mg tablet 150 mg PO DAILY 05/30/22 09/10/22 (Verzenio) alendronate 70 mg tablet 70 mg PO WEEKLY 09/10/22 09/10/22 amlodipine 10 mg tablet 10 mg PO DAILY 09/10/22 09/10/22 biotin 1 mg tablet 1 mg PO DAILY 09/10/22 09/10/22 colestipol 1 gram tablet 1 g PO Q12H 09/10/22 09/10/22 diphenoxylate-atropine 2.5 1 tablet PO QID PRN Diarrhea 09/10/22 09/10/22 mg-0.025 mg tablet omeprazole 20 mg capsule,delayed 20 mg PO DAILY 09/10/22 09/10/22 release potassium chloride 20 mEq 20 meq PO Q12H 09/10/22 09/10/22 tablet,extended release(part/cryst) prochlorperazine maleate 10 mg 10 mg PO Q6H PRN Nausea And 09/10/22 09/10/22 tablet (Compazine) Vomiting <Luis Daniel Crawley MD - Last Filed: 09/12/22 19:20> Allergies/Adverse Reactions: Allergies Allergy/AdvReac Type Severity Reaction Status Date / Time latex Allergy Unknown Unknown Verified 05/30/22 13:55 neomycin Allergy Unknown Unknown Verified 05/30/22 13:55 <Luis Daniel Crawley MD - Last Filed: 09/12/22 19:20> Review of Systems Review of Systems: All systems reviewed & are unremarkable except as noted in HPI and below <Luis Daniel Crawley MD - Last Filed: 09/12/22 19:20> PMFSH Past Medical History Medical History: Medical History (Updated 09/10/22 @ 12:28 by Margy Hubbard MD) Clotting disorder (~2003) FH: carotid endarterectomy (~03/09/15) Hernia (~2005) <Luis Daniel Crawley MD - Last Filed: 09/12/22 19:20> Surgical History Surgical History: Surgical History H/O bladder repair surgery (~2005) H/O right mastectomy (~2007) H/O: hysterectomy (~1974) History of breast lump removal (~1983) History of removal of both ovaries (~1984) <Luis Daniel Crawley MD - Last Filed: 09/12/22 19:20> Family History Family History: Family History Father , 73 Heart abnormality Mother , 49 Cancer <Luis Daniel Crawley MD - Last Filed: 09/12/22 19:20> Social History Social History: Social History Social History: 1 cup of coffee per day Smoking status: Former smoker Smoking end date: 09/23/14 Alcohol intake: never Substance use: never
[2022-09-09] MEDS: ONDANSETRON INJ 4 MG/2 ML VIAL IV PUSH (21:39)
[2022-09-09] MEDS: MORPHINE SULFATE (*CRX) 4 MG/ML INJ 2 MG IV PUSH (21:39)
[2022-09-09] MEDS: LABETALOL HCL INJ 100 MG/20 ML VIAL 20 MG IV PUSH (21:40)
[2022-09-09] MEDS: LIDOCAINE HCL 1% PF 30 ML VIAL 5 ML INFILTRATE (22:42)
[2022-09-09 22:49] VITALS: BP 123/48; PULSE 84; RESP 16; O2SAT 95
--- NOTE | 2022-09-09 23:08 | ECG_ITS ---
Measurements Intervals [place] Rate: 82 P: 19 VT: 156 QRS: -31 QRSD: 90 T: 73 QT: 389 QTc: 455 Interpretive Statements SINUS RHYTHM LEFT AXIS DEVIATION [QRS AXIS < -30] LEFT VENTRICULAR HYPERTROPHY AND ST-T CHANGE [VOLTAGE CRITERIA PLUS ST/T ABNORMALITY] ABNORMAL ECG Electronically Signed On 09-10-2022 10:28:04 SOFTWARE EDUCATOR by Chris Bailey M.D.
--- NOTE | 2022-09-09 23:10 | PM.IMHP ---
H&P: HPI History of Present Illness Date/Time: 09/09/22 23:10 Chief Complaint: Syncope. [facility] Past Medical History Medical History (Updated 09/10/22 @ 04:32 by Alberto Tejada MD) Clotting disorder (~2003) FH: carotid endarterectomy (~03/09/15) Hernia (~2005) Surgical History Surgical History H/O bladder repair surgery (~2005) H/O right mastectomy (~2007) H/O: hysterectomy (~1974) History of breast lump removal (~1983) History of removal of both ovaries (~1984) Family History Family History Father , 73 Heart abnormality Mother , 49 Cancer Social History Social History Social History: 1 cup of coffee per day Smoking status: Former smoker Smoking end date: 09/23/14 Alcohol intake: never Substance use: never Gender identity (if verbalized by the patient): Female Meds Home Medications and Allergies Home Medications Medication Instructions Recorded Confirmed Type aspirin 81 mg tablet,delayed See Rx Instructions .Route .COMPLEX 04/12/20 11/08/21 History release (Enteric Coated Aspirin) atorvastatin 40 mg tablet See Rx Instructions .Route .COMPLEX 04/12/20 11/08/21 History calcium 600 mg-D3 800 unit-mag11 See Rx Instructions .Route .COMPLEX 04/12/20 11/08/21 History 50 aw-ukkd-qvpqrt-stephan-s.borat tablet (Caltrate 600-D Plus Minerals) cholecalciferol (vitamin D3) 25 See Rx Instructions .Route .COMPLEX 04/12/20 11/08/21 History mcg (1,000 unit) capsule ferrous sulfate 325 mg (65 mg See Rx Instructions .Route .COMPLEX 04/12/20 11/08/21 History iron) tablet lisinopril 20 mg tablet See Rx Instructions .Route 04/12/20 11/08/21 Rx .COMPLEX #30 tabs multivitamin See Rx Instructions .Route .COMPLEX 04/12/20 11/08/21 History albuterol sulfate 90 mcg/actuation See Rx Instructions .Route .COMPLEX 08/08/21 11/08/21 History aerosol inhaler letrozole 2.5 mg tablet 2.5 mg PO DAILY 08/08/21 11/08/21 History alendronate 70 mg tablet 70 mg PO .COMPLEX #12 tabs 09/27/21 11/08/21 Rx levothyroxine 75 mcg tablet 75 mcg PO DAILY #90 tabs 11/01/21 11/08/21 Rx tiotropium 2.5 mcg-olodaterol 2.5 2 puff inhalation DAILY #12 grams 12/01/21 Rx mcg/actuation mist for inhalation (Stiolto Respimat) naproxen 500 mg tablet 500 mg PO BID #180 tabs 01/01/22 Rx omeprazole 20 mg capsule,delayed See Rx Instructions .Route 01/01/22 Rx release .COMPLEX #90 caps atenolol 50 mg tablet 50 mg PO DAILY #90 tabs 01/30/22 Rx sertraline 50 mg tablet 50 mg PO DAILY #90 tabs 01/30/22 Rx abemaciclib 150 mg tablet 150 mg PO ONCE PRN 05/30/22 History (Verzenio) trastuzumab 150 mg intravenous 100 mg IV WEEKLY 05/30/22 History solution (Herceptin) amlodipine 10 mg tablet See Rx Instructions .Route 06/06/22 Rx .COMPLEX #90 tabs Allergies Allergy/AdvReac Type Severity Reaction Status Date / Time latex Allergy Unknown Unknown Verified 05/30/22 13:55 neomycin Allergy Unknown Unknown Verified 05/30/22 13:55 Vital Signs Vital Signs - 24 hr 09/09/22 18:47 09/09/22 20:45 09/09/22 21:13 Temperature 97.6 F Pulse Rate 68 72 71 Respiratory Rate 18 16 20 Blood Pressure 137/61 215/66 H 208/77 H Pulse Oximetry 100 98 96 Oxygen Delivery Room Air 09/09/22 22:49 Temperature Pulse Rate 84 Respiratory Rate 16 Blood Pressure 123/48 L Pulse Oximetry 95 Oxygen Delivery Assessment and Plan Assessment and plan (1) Syncope: Code(s): R55 - Syncope and collapse Status: Acute Assessment and Plan: patient was noted to have high blood pressure echocardiogram in a.m. patient is status post carotid endarterectomy supportive care continue to monitor (2) Subarachnoid hemorrhage: Code(s): I60.9 - Nontraumatic subarachnoid hemorrhage, unspecified Status: Acute Assess
[2022-09-09 23:49] VITALS: BP 122/57; PULSE 68; RESP 18; O2SAT 95
[2022-09-09 23:52] LABS: Basophils Absolute Auto 0.1 K/mm3 (0.0-0.1); Basophils Percent Auto 1.2 % (0.2-1.2); Eosinophils Absolute Auto 0.1 K/mm3 (0-0.3); Eosinophils Percent Auto 2.8 % (0-4.4); Hematocrit 36.5 % (37.0-47.0); Hemoglobin 12.1 g/dL (12.0-15.0); Immature Granulocyte Absolute 0.02 K/mm3 (0.00-0.031); Immature Granulocyte Percent A 0.5 % (0-0.5); Lymphocytes Absolute Auto 1.04 K/mm3 (0.9-3.2); Lymphocytes Percent Auto 24.5 % (18.3-44.2); Mean Corpuscular HGB Conc 33.2 g/dl (32-36); Mean Corpuscular Hemoglobin 32.6 pg (26-34); Mean Corpuscular Volume 98.4 fl (80-100); Mean Platelet Volume 11.3 fl (7.4-10.4); Monocytes Absolute Auto 0.4 K/mm3 (0.1-0.6); Monocytes Percent Auto 8.3 % (2.6-8.5); Neutrophils Absolute Auto 2.7 K/mm3 (1.3-6.7); Neutrophils Percent Auto 62.7 % (45.5-73.1); Platelet Count Result 192 k/mm3 (150-375); Red Blood Count 3.71 M/mm3 (4.2-5.4); Red Cell Distribution Width 11.9 % (11.5-14.5); White Blood Count 4.2 K/mm3 (4.5-10.0)
[2022-09-10] VITALS (14 sets, daily range): BP systolic 105–165; BP diastolic 45–64; PULSE 65–88; RESP 16–20; TEMP 36.1–37.5; O2SAT 93–98; BMI 23.8
--- NOTE | 2022-09-10 | ECHO_ITS ---
Patient Info Name: Bela Spangler Age: 81 years : 1940 Gender: Female Ht: 59 in Wt: 119 lbs BSA: 1.51 m2 HR: 72 bpm BP: 148 / 49 mmHg Heart Rhythm: Sinus Rhythm Technical Quality: Fair Exam Date: 09/10/2022 10:22 AM Exam Location: [facility] Pulmonary Patient Status: Inpatient Admit Date: 09/09/2022 Staff Ordering Physician: Alberto Tejada MD Executive Cyber Leader: Geneva Bhardwaj RDCS Attending Provider: Raul Chappell MD Referring Physician: Terrell HERNANDEZ; Exam Type: CA echo doppler color flow Study Info Indications R55 - Syncope and collapse Complete two-dimensional, color flow and Doppler transthoracic echocardiogram is performed. Summary 1. Complete two-dimensional, color flow and Doppler transthoracic echocardiogram is performed. 2. Left ventricular chamber dimension is normal. 3. Left ventricular systolic function is hyperdynamic, estimated at >70%. 4. There is mildly increased left ventricular wall thickness. 5. The left ventricular diastolic function is grade I diastolic dysfunction. 6. Right ventricular chamber dimension is mildly enlarged. 7. Left atrial chamber dimension is moderately enlarged. 8. Right atrial chamber dimension is mildly enlarged. 9. There is mild mitral valve regurgitation. 10. There is mild tricuspid valve regurgitation. 11. Mild pulmonary hypertension, estimated pulmonary arterial systolic pressure is 41 mmHg. Left Ventricle Left ventricular chamber dimension is normal. Left ventricular systolic function is hyperdynamic, estimated at >70%. There is mildly increased left ventricular wall thickness. The left ventricular diastolic function is grade I diastolic dysfunction. Right Ventricle Right ventricular chamber dimension is mildly enlarged. Right ventricular systolic function is normal. Left Atria Left atrial chamber dimension is moderately enlarged. Right Atria Right atrial chamber dimension is mildly enlarged. Atrial Septum Intact interatrial septum visualized by color flow imaging. Aortic Valve The aortic valve is trileaflet. There is no aortic valve stenosis. There is trace aortic valve regurgitation. There is mild aortic valve calcification. Pulmonic Valve The pulmonic valve is normal. There is no pulmonic valve stenosis. There is trace pulmonic regurgitation. Mitral Valve There is no mitral valve stenosis. There is mild mitral valve regurgitation. The mitral valve annulus is mildly calcified. Tricuspid Valve The tricuspid valve leaflets are normal. There is no significant tricuspid valve stenosis. There is mild tricuspid valve regurgitation. Mild pulmonary hypertension, estimated pulmonary arterial systolic pressure is 41 mmHg. Pericardium/Pleural The pericardium appears normal. There is trivial pericardial effusion. Inferior Vena Cava Normal inferior vena cava with >50% collapse upon inspiration consistent with normal right atrial pressure, 5 mmHg. Aorta The aortic root size at the sinus of Valsalva is normal. Left Ventricular Outflow Tract Name Value Normal LVOT 2D LVOT Diameter 2.0 cm LVOT Doppler
[2022-09-10 00:02] LABS: INR 1.2; Prothrombin Time 15.1 Seconds (11.1-14.7)
[2022-09-10 00:03] LABS: Partial Thromboplastin Time 28.2 SECONDS (22.3-36.8)
[2022-09-10 00:05] LABS: Alanine Aminotransferase 24 U/L (6-35); Albumin Level 4.5 g/dL (3.5-5.1); Alkaline Phosphatase 117 U/L (38-126); Anion Gap 9 mmol/L (8-16); Aspartate Amino Transferase 39 U/L (14-36); Bilirubin,Total 0.6 mg/dL (0.2-1.3); Blood Urea Nitrogen 16 mg/dL (7-17); Calcium 9.7 mg/dL (8.4-10.2); Carbon Dioxide 22 mmol/L (22-30); Chloride 106 mmol/L (98-107); Estimated Glomerular Filt Rate 39; Glucose 113 mg/dL (65-110); Potassium 4.3 mmol/L (3.4-5.0); Sodium 137 mmol/L (137-145)
[2022-09-10 00:16] LABS: Troponin I < 0.012 ng/mL (0.000-0.034)
[2022-09-10] MEDS: SODIUM CHLORIDE 0.9% IV 1,000 ML 75 ML IV CONT ×3 (02:57→20:48)
[2022-09-10 05:58] LABS: Troponin I 0.012 ng/mL (0.000-0.034)
--- NOTE | 2022-09-10 11:11 | WPDNEURCNPN ---
Assessment and Plan Assessment and plan (1) Subarachnoid hemorrhage: Code(s): I60.9 - Nontraumatic subarachnoid hemorrhage, unspecified Status: Acute (2) Syncope: Code(s): R55 - Syncope and collapse Status: Acute (3) Carotid arterial disease: Code(s): I77.9 - Disorder of arteries and arterioles, unspecified Status: Acute Plan Bela Spangler is a 81 year old female with a history of breast cancer (on hormonal therapy), hypertension, hyperlipidemia, hypothyroidism, carotid disease s/p CEA who presented after a fall last night. Found to have R frontal SAH on imaging. Likely traumatic subarachnoid hemorrhage. Etiology of syncope could be related to carotid disease. Will need vessel imaging to evaluate carotids as well as any evidence of aneurysm. - Maintain BP <140 - Continue to hold Aspirin - Recommend CTA brain and carotid - Stat CT head for any change in neuro exam/mental status Consult date: 09/10/22 Time Seen: 11:12 Reason for consult: Subarachnoid hemorrhage HPI: Bela Spangler is a 81 year old female with a history of breast cancer (on hormonal therapy), hypertension, hyperlipidemia, hypothyroidism who presented after a fall last night. Patient got up from her chair and next thing she realized she was on the floor with bleeding from her forehead. She denied any headache or focal neurological deficit. She was taken to [place] ED where initial BP is documented as in 200s systolic, with subsequent BP in the 130s and 140s. She was AOxz3 and her exam was non focal. CT head was obtained which showed a small subarachnoid hemorrhage in the right frontal lobe. Case discussed with [facility] and the recommendation was that patient did not need to be transferred given small size of SAH, and to repeat CT head 6 hours after the initial. Repeat CT head was unchanged. Patient does have a history of carotid endarterectomy. She has not had any vessel imaging done during this admission. Her home aspirin is currently being held. Surface echo was done this morning and unremarkable. Patient denies any preceding presyncopal symptoms prior to her fall. However, she does feel dizzy at times when she gets up to fast. [facility] Past Medical History Medical History (Updated 09/10/22 @ 12:28 by Margy Hubbard MD) Clotting disorder (~2003) FH: carotid endarterectomy (~03/09/15) Hernia (~2005) Surgical History Surgical History H/O bladder repair surgery (~2005) H/O right mastectomy (~2007) H/O: hysterectomy (~1974) History of breast lump removal (~1983) History of removal of both ovaries (~1984) Family History Family History Father , 73 Heart abnormality Mother , 49 Cancer Social History Social History Social History: 1 cup of coffee per day Smoking status: Former smoker Smoking end date: 09/23/14 Alcohol intake: never Substance use: never Substance use type: does not use Lack of Transportation: No Lack of Food: Never True Current Housing: I Have Housing Concerned About Future Housing: No Difficulty Paying Gas/Electric Bills: No Difficulty Paying for Meds: No Currently Unemployed: No Education: High School Diploma/GED Difficulty w/ Childcare or Family Care: No Gender identity (if verbalized by the patient): Female Spiritual care concerns: No Meds Home Medications and Allergies Home Medications Medication Instructions Recorded Confirmed Type aspirin 81 mg tablet,delayed 81 mg PO DAILY 04/12/20 09/10/22 History release (Enteric Coated Aspirin) atorvastatin 40 mg tablet 40 mg PO DAILY 04/12/20 09/10/22 History cholecalciferol (vitamin D3) 25 1,000 unit PO DAILY 04/12/20 09/10/22 History mcg (1,000 unit) capsule ferrous sulfate 325 mg (65 mg 325 mg PO DAILY 04/12/20 09/10/22
--- NOTE | 2022-09-10 11:45 | PM.CNCAR ---
Assessment and Plan Assessment and plan (1) Syncope: Code(s): R55 - Syncope and collapse Status: Acute Assessment and Plan: Sounds orthostatic in etiology. Unlikely to be arrhythmogenic and probably no significant association with her carotid disease either. CTA is ordered and will be reviewed. Echocardiogram is also ordered and will be reviewed but she has had several MUGA scans at [place] because of her breast cancer treatment and reportedly her heart function is normal. Check orthostatic BP. She is encouraged to stay hydrated. Get up slowly from a sitting or lying position. Sat back down of dizziness occurs. Compression stockings to lower extremities. Keep her on telemetry for now. (2) Subarachnoid hemorrhage: Code(s): I60.9 - Nontraumatic subarachnoid hemorrhage, unspecified Status: Acute Assessment and Plan: Small hemorrhage noted. Obviously if her neurological symptoms change or worsen she should be transferred (3) HTN (hypertension): Qualifiers: Hypertension type: essential hypertension Qualified Code(s): I10 - Essential (primary) hypertension Code(s): I10 - Essential (primary) hypertension Status: Acute Assessment and Plan: Above goal (4) CKD (chronic kidney disease): Code(s): N18.9 - Chronic kidney disease, unspecified Status: Acute Assessment and Plan: [id number] History of Present Illness History of Present Illness Consult date/time: 09/10/22 11:45 Requesting physician: Raul Chappell MD Consult reason: Other (Syncope) Reason For Visit: Syncope,Subarachnoid Hemorrhage Narrative: Date of service 09/10/2022 Reason consultation: Syncope Requesting provider: Dr. Chappell History: Patient is a is an 81-year-old female who is undergoing treatment at [facility] for breast cancer. She came to the hospital yesterday because of a syncopal episode. She was getting up to go to the bathroom and woke up on the floor. She came to hospital for further evaluation and she was noted to have a small subarachnoid hemorrhage. She is staying in this hospital after discussion with [facility] as it was thought that bleed was small and repeat CTA scan showed no change. She does have history of carotid endarterectomy performed by Dr. Ernst. She does describe other episodes in which she will be come dizzy upon standing up. Sometimes she has to sit back down because of the dizziness. She denies any chest pain. She has some shortness of breath related to COPD but nothing new or different. Mild amount of intermittent edema at times. No paroxysmal nocturnal dyspnea, orthopnea, palpitations. Review of Systems Review of Systems: All systems reviewed & are unremarkable except as noted in HPI and below Constitutional: Constitutional: Denies chills Eyes: Eyes: Denies blurry vision ENT: Reports Normal hearing present Cardiovascular: Cardiovascular: Denies chest pain Respiratory: Respiratory: Denies chest congestion Gastrointestinal: Gastrointestinal: Denies abdominal pain Genitourinary: Genitourinary: Denies hematuria Musculoskeletal: Musculoskeletal: Denies back pain Integumentary/Breasts: Skin/Breast: Denies rash and Denies skin pain Neurologic: Denies abnormal gait Psychiatric: Psychiatric: Denies anxiety Endocrine: Endocrine: Denies excessive sweating Hematologic/Lymphatic: Hematologic/Lymphatic: Denies easy bleeding Allergic/Immunologic: Allergic/Immunologic: Denies GI upset with certain foods PMFSH Past Medical History Medical History Clotting disorder (~2003) FH: carotid endarterectomy (~03/09/15) Hernia (~2005) Surgical History Surgical History H/O bladder repair surgery (~2005) H/O right mastectomy (~2007) H/O: hysterectomy (~1974) History of breast lump removal (
[2022-09-10] MEDS: ACETAMINOPHEN 325 MG TABLET 650 MG PO (15:41)
--- NOTE | 2022-09-10 18:22 | PM.IMPN ---
Progress Note: A&P Assessment and Plan (1) Syncope: Code(s): R55 - Syncope and collapse Status: Acute Assessment and Plan: patient was noted to have high blood pressure echocardiogram pending patient is status post left carotid endarterectomy supportive care continue to monitor Monitor on telemetry cardiology consult (2) Subarachnoid hemorrhage: Code(s): I60.9 - Nontraumatic subarachnoid hemorrhage, unspecified Status: Acute Assessment and Plan: She has traumatic subarachnoid hemorrhage is Initial CT head reviewed Repeat CT with no worsening Consult neurology and neurosurgery Discussed with Neurology plan for CTA to rule out underlying aneurysm (3) CKD (chronic kidney disease): Code(s): N18.9 - Chronic kidney disease, unspecified Status: Acute (4) Face lacerations: Code(s): S01.81XA - Laceration without foreign body of other part of head, initial encounter Status: Acute Assessment and Plan: status post suture local care (5) COPD (chronic obstructive pulmonary disease): Code(s): J44.9 - Chronic obstructive pulmonary disease, unspecified Status: Acute Assessment and Plan: resume home meds not actively wheezing (6) HTN (hypertension): Qualifiers: Hypertension type: essential hypertension Qualified Code(s): I10 - Essential (primary) hypertension Code(s): I10 - Essential (primary) hypertension Status: Acute Assessment and Plan: resume home meds continue to monitor uncontrolled (7) GERD (gastroesophageal reflux disease): Qualifiers: Esophagitis presence: without esophagitis Qualified Code(s): K21.9 - Gastro-esophageal reflux disease without esophagitis Code(s): K21.9 - Gastro-esophageal reflux disease without esophagitis Status: Acute Assessment and Plan: PPI Subjective Date/time seen: 09/10/22 18:22 Interval history: syncopal episode discussed with family. No weakness in arms or legs. No tingling and numbness. No headache. No fever chills. Review of Systems Review of Systems: All systems reviewed & are unremarkable except as noted in HPI and below Exam Narrative: General appearance: Well-developed, well-nourished Skin: Normal color No rash Head: Right frontal hematoma and 2 lacerations, 3 cm and 2 cm which are stitched Eyes: Clear conjunctiva ENT: Oropharynx normal, ears normal, nose normal Neck: Supple, nontender Chest and respiratory: Airway patent, no respiratory distress, no accessory muscle use Heart: Regular rate/rhythm Abdomen: Soft, nontender, no organomegaly, quiet bowel sounds Vascular: Normal peripheral pulses, normal capillary refill. Musculoskeletal: Right wrist bruises and swelling, right knee abrasion anteriorly , good range of motion Neurologic: Alert and oriented ?3, HEAD CHARRER is normal as tested, no gross motor deficit Objective Data Vital Signs Vital Signs: Vital Signs - 24 hr 09/09/22 18:47 09/09/22 20:45 09/09/22 21:13 Temperature 97.6 F Pulse Rate 68 72 71 Respiratory Rate 18 16 20 Blood Pressure 137/61 215/66 H 208/77 H Pulse Oximetry 100 98 96 Oxygen Delivery Room Air 09/09/22 22:49 09/09/22 23:49 09/10/22 04:50 Temperature 98.7 F Pulse Rate 84 68 74 Respiratory Rate 16 18 20 Blood Pressure 123/48 L 122/57 L 148/49 H Pulse Oximetry 95 95 98 Oxygen Delivery 09/10/22 05:51 09/10/22 08:00 09/10/22 08:00 Temperature 97.5 F L Pulse Rate 72 75 71 Respiratory Rate 18 Blood Pressure 134/64 Pulse Oximetry 94 Oxygen Delivery 09/10/22 10:00 09/10/22 12:00 09/10/22 11:52 Temperature 99.5 F Pulse Rate 73 81 78 Respiratory Rate 16 Blood Pressure 125/47 L Pulse Oximetry 94 Oxygen Delivery 09/10/22 13:50 09/10/22 13:51 09/10/22 14:00 Temperature Pulse Rate 73 Respiratory Rate Blood Pressure 142/49 H 145/48 H Pulse Oximetry Oxygen [employer]
[2022-09-10] MEDS: COLESTIPOL HCL 1 GM TABLET PO (20:53)
[2022-09-11] VITALS (12 sets, daily range): BP systolic 138–206; BP diastolic 46–78; PULSE 63–90; RESP 12–17; TEMP 36.2–36.7; O2SAT 94–100
[2022-09-11 05:05] LABS: Basophils Percent Auto 0.8 % (0.2-1.2); Eosinophils Absolute Auto 0.1 K/mm3 (0-0.3); Eosinophils Percent Auto 3.4 % (0-4.4); Hematocrit 29.6 % (37.0-47.0); Hemoglobin 9.7 g/dL (12.0-15.0); Immature Platelet Fraction Pct 5.5 % (0.9-11.2); Lymphocytes Absolute Auto 0.95 K/mm3 (0.9-3.2); Lymphocytes Percent Auto 35.7 % (18.3-44.2); Mean Corpuscular HGB Conc 32.8 g/dl (32-36); Mean Corpuscular Hemoglobin 33.4 pg (26-34); Mean Corpuscular Volume 102.1 fl (80-100); Mean Platelet Volume 11.1 fl (7.4-10.4); Monocytes Absolute Auto 0.3 K/mm3 (0.1-0.6); Monocytes Percent Auto 10.5 % (2.6-8.5); Neutrophils Absolute Auto 1.3 K/mm3 (1.3-6.7); Neutrophils Percent Auto 49.6 % (45.5-73.1); Platelet Count Result 144 k/mm3 (150-375); White Blood Count 2.7 K/mm3 (4.5-10.0)
[2022-09-11 05:12] LABS: Potassium 4.1 mmol/L (3.4-5.0)
[2022-09-11 05:15] LABS: Alanine Aminotransferase 18 U/L (6-35); Albumin Level 3.6 g/dL (3.5-5.1); Alkaline Phosphatase 85 U/L (38-126); Anion Gap 5 mmol/L (8-16); Aspartate Amino Transferase 31 U/L (14-36); Bilirubin,Total 0.3 mg/dL (0.2-1.3); Blood Urea Nitrogen 16 mg/dL (7-17); Calcium 9.1 mg/dL (8.4-10.2); Carbon Dioxide 26 mmol/L (22-30); Chloride 110 mmol/L (98-107); Estimated Glomerular Filt Rate 36; Glucose 94 mg/dL (65-110); Magnesium 1.8 mg/dL (1.6-2.3); Sodium 141 mmol/L (137-145)
[2022-09-11] MEDS: LEVOTHYROXINE SODIUM 75 MCG TABLET PO (06:17)
[2022-09-11] MEDS: SODIUM CHLORIDE 0.9% IV 1,000 ML 75 ML IV CONT (08:18)
[2022-09-11] MEDS: PANTOPRAZOLE 40 MG TABLET PO (08:19)
[2022-09-11] MEDS: MULTIVITAMINS THERAPEUTIC TAB (*BKC) 1 TABLET PO (08:19)
[2022-09-11] MEDS: CHOLECALCIFEROL 1,000 UNITS TABLET 1000 UNITS PO (08:19)
[2022-09-11] MEDS: COLESTIPOL HCL 1 GM TABLET PO ×2 (08:19→20:34)
[2022-09-11] MEDS: amLODIPine BESYLATE 5 MG TABLET 10 MG PO (08:19)
[2022-09-11] MEDS: ATORVASTATIN 40 MG TABLET PO (08:19)
[2022-09-11] MEDS: FERROUS SULFATE 324 MG TABLET PO (08:19)
[2022-09-11] MEDS: atenoloL 50 MG TABLET PO (08:19)
--- NOTE | 2022-09-11 09:56 | WPDNEUROPN ---
Progress Note: A&P Assessment and Plan (1) Subarachnoid hemorrhage: Code(s): I60.9 - Nontraumatic subarachnoid hemorrhage, unspecified Status: Acute (2) Syncope: Code(s): R55 - Syncope and collapse Status: Acute (3) Carotid arterial disease: Code(s): I77.9 - Disorder of arteries and arterioles, unspecified Status: Acute Plan Bela Spangler is a 81 year old female with a history of breast cancer (on hormonal therapy), hypertension, hyperlipidemia, hypothyroidism, carotid disease s/p ledt CEA who presented after a fall last night. Found to have R frontal SAH on imaging. Likely traumatic subarachnoid hemorrhage. Etiology of syncope could be related to carotid disease. CTA confirmed significant multifocal stenosis of bilateral carotid arteries. Will need to compare to prior studies to see if there is significant change and discuss with patient's vascular surgeon regarding need for intervention. Course has been complicated by hypertension. - Maintain BP <140 - Continue to hold Aspirin for now - Stat CT head for any change in neuro exam/mental status - Repeat CT scan as outpatient in 2-3 weeks; if stable, can resume aspirin at that time Subjective Date/time seen: 09/11/22 09:56 Interval history: Bela Spangler is a 81 year old female with a history of breast cancer (on hormonal therapy), hypertension, hyperlipidemia, hypothyroidism who presented after a fall last night. Patient got up from her chair and next thing she realized she was on the floor with bleeding from her forehead. She denied any headache or focal neurological deficit. She was taken to [place] ED where initial BP is documented as in 200s systolic, with subsequent BP in the 130s and 140s. She was AOx3 and her exam was non focal. CT head was obtained which showed a small subarachnoid hemorrhage in the right frontal lobe. Case discussed with [facility] and the recommendation was that patient did not need to be transferred given small size of SAH, and to repeat CT head 6 hours after the initial. Repeat CT head was unchanged. Patient does have a history of carotid endarterectomy. She has not had any vessel imaging done during this admission. Her home aspirin is currently being held. Surface echo was done this morning and unremarkable. Patient denies any preceding presyncopal symptoms prior to her fall. However, she does feel dizzy at times when she gets up to fast. 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 BP has been higher, up to 200s today. Review of Systems Constitutional: Constitutional: Reports no additional constitutional complaints Eyes: Eyes: Reports no additional eye complaints ENT: Reports system reviewed and no additional complaints, except as documented Cardiovascular: Cardiovascular: Reports no additional cardiovascular complaints Respiratory: Respiratory: Reports no additional respiratory complaints Gastrointestinal: Gastrointestinal: Reports no additional gastrointestinal complaints Genitourinary: Genitourinary: Reports no additional female genitourinary complaints Musculoskeletal: Musculoskeletal: Reports no additional musculoskeletal complaints Integumentary/Breasts: Skin/Breast: Reports system reviewed and no additional complaints, except as docu Neurologic: Reports as per HPI Psychiatric: Psychiatric: Reports no additional psychiatric complaints Exam Const: General: comfortable and no acute distress HENMT: Mouth: Yes moist mucous membranes Eyes: General: appearance normal, both eyes
--- NOTE | 2022-09-11 15:11 | PC.NURSE ---
This patient, Bela Spangler, was transferred to [[facility] ] on 09/11/22 at 1511. Personal belongings sent with patient. Report given to [FATOUMATA Cohen @ [id number]]. Appropriate documentation sent with patient.
--- NOTE | 2022-09-11 18:59 | PM.IMPN ---
Progress Note: A&P Assessment and Plan (1) Syncope: Code(s): R55 - Syncope and collapse Status: Acute Assessment and Plan: patient was noted to have high blood pressure echocardiogram reviewed patient is status post left carotid endarterectomy supportive care continue to monitor Monitor on telemetry with no arrhythmia cardiology consult (2) Subarachnoid hemorrhage: Code(s): I60.9 - Nontraumatic subarachnoid hemorrhage, unspecified Status: Acute Assessment and Plan: She has traumatic subarachnoid hemorrhage is Initial CT head reviewed Repeat CT with no worsening Consult neurology and neurosurgery Discussed with Neurology p CTA with multiple stenosis discussed with the family which are all chronic. She follows with Dr. Ma as an outpatient basis recommended to follow up with Dr. Ma in few weeks. Need to hold aspirin for few weeks. Repeat CT scan as an outpatient in 2-3 weeks. Maintain blood pressure less than 140 (3) CKD (chronic kidney disease): Code(s): N18.9 - Chronic kidney disease, unspecified Status: Acute (4) Face lacerations: Code(s): S01.81XA - Laceration without foreign body of other part of head, initial encounter Status: Acute Assessment and Plan: status post suture local care (5) COPD (chronic obstructive pulmonary disease): Code(s): J44.9 - Chronic obstructive pulmonary disease, unspecified Status: Acute Assessment and Plan: resume home meds not actively wheezing (6) HTN (hypertension): Qualifiers: Hypertension type: essential hypertension Qualified Code(s): I10 - Essential (primary) hypertension Code(s): I10 - Essential (primary) hypertension Status: Acute Assessment and Plan: resume home meds continue to monitor uncontrolled (7) GERD (gastroesophageal reflux disease): Qualifiers: Esophagitis presence: without esophagitis Qualified Code(s): K21.9 - Gastro-esophageal reflux disease without esophagitis Code(s): K21.9 - Gastro-esophageal reflux disease without esophagitis Status: Acute Assessment and Plan: PPI Subjective Date/time seen: 09/11/22 18:59 Interval history: no overnight events. Doing well. No neurological symptoms. Discussed with the the family. Review of Systems Review of Systems: All systems reviewed & are unremarkable except as noted in HPI and below Exam Narrative: General appearance: Well-developed, well-nourished Skin: Normal color No rash Head: Right frontal hematoma and 2 lacerations, 3 cm and 2 cm which are stitched Eyes: Clear conjunctiva ENT: Oropharynx normal, ears normal, nose normal Neck: Supple, nontender Chest and respiratory: Airway patent, no respiratory distress, no accessory muscle use Heart: Regular rate/rhythm Abdomen: Soft, nontender, no organomegaly, quiet bowel sounds Vascular: Normal peripheral pulses, normal capillary refill. Musculoskeletal: Right wrist bruises and swelling, right knee abrasion anteriorly , good range of motion Neurologic: Alert and oriented ?3, FERMENTER is normal as tested, no gross motor deficit Objective Data Vital Signs Vital Signs: Vital Signs - 24 hr 09/10/22 20:00 09/10/22 20:00 09/10/22 22:00 Temperature 97.0 F L Pulse Rate 65 67 72 Respiratory Rate 16 Blood Pressure 105/58 L Pulse Oximetry 93 09/10/22 23:48 09/11/22 00:00 09/11/22 02:00 Temperature 97.7 F Pulse Rate 75 63 68 Respiratory Rate 16 Blood Pressure 165/56 H Pulse Oximetry 94 09/11/22 04:00 09/11/22 04:00 09/11/22 06:00 Temperature 97.1 F L Pulse Rate 83 75 66 Respiratory Rate 16 Blood Pressure 151/64 H Pulse Oximetry 97 09/11/22 08:19 09/11/22 08:00 09/11/22 08:30 Temperature Pulse Rate 66 Respiratory Rate Blood Pressure 182/68 H 153/78 H Pulse Oximetry 09/11/22 09:00 09/11/22 08:00 09/11/22 08:00 Temper
[2022-09-12] VITALS (7 sets, daily range): BP systolic 122–180; BP diastolic 49–61; PULSE 68–75; RESP 16–17; TEMP 36.3–36.7; O2SAT 95–99
[2022-09-12] MEDS: LEVOTHYROXINE SODIUM 75 MCG TABLET PO (05:46)
[2022-09-12] MEDS: ALENDRONATE SODIUM 70 MG TABLET PO (05:46)
[2022-09-12 06:08] LABS: Basophils Absolute Auto 0.1 K/mm3 (0.0-0.1); Basophils Percent Auto 1.4 % (0.2-1.2); Eosinophils Absolute Auto 0.2 K/mm3 (0-0.3); Eosinophils Percent Auto 4.1 % (0-4.4); Hematocrit 33.6 % (37.0-47.0); Hemoglobin 10.9 g/dL (12.0-15.0); Lymphocytes Absolute Auto 1.05 K/mm3 (0.9-3.2); Mean Corpuscular HGB Conc 32.4 g/dl (32-36); Mean Corpuscular Hemoglobin 32.9 pg (26-34); Mean Corpuscular Volume 101.5 fl (80-100); Monocytes Absolute Auto 0.3 K/mm3 (0.1-0.6); Monocytes Percent Auto 9.1 % (2.6-8.5); Neutrophils Percent Auto 56.4 % (45.5-73.1); Platelet Count Result 171 k/mm3 (150-375); Red Blood Count 3.31 M/mm3 (4.2-5.4); White Blood Count 3.6 K/mm3 (4.5-10.0)
[2022-09-12 06:23] LABS: Alanine Aminotransferase 19 U/L (6-35); Albumin Level 4.1 g/dL (3.5-5.1); Alkaline Phosphatase 84 U/L (38-126); Anion Gap 7 mmol/L (8-16); Aspartate Amino Transferase 33 U/L (14-36); Bilirubin,Total 0.3 mg/dL (0.2-1.3); Blood Urea Nitrogen 12 mg/dL (7-17); Calcium 9.5 mg/dL (8.4-10.2); Carbon Dioxide 28 mmol/L (22-30); Chloride 103 mmol/L (98-107); Estimated Glomerular Filt Rate 48; Glucose 109 mg/dL (65-110); Magnesium 1.7 mg/dL (1.6-2.3); Sodium 138 mmol/L (137-145)
--- NOTE | 2022-09-12 07:45 | PM.IMPN ---
Progress Note: A&P Assessment and Plan (1) Syncope: Code(s): R55 - Syncope and collapse Status: Acute Assessment and Plan: patient was noted to have high blood pressure echocardiogram reviewed patient is status post left carotid endarterectomy supportive care continue to monitor Monitor on telemetry with no arrhythmia Compression stockings applied Orthostatics Q shift cardiology consult (2) Subarachnoid hemorrhage: Code(s): I60.9 - Nontraumatic subarachnoid hemorrhage, unspecified Status: Acute Assessment and Plan: Subarachnoid hemorrhage seen on head CT. Repeat CT with no worsening Consult neurology and neurosurgery CTA with multiple chronic stenosis sites discussed with the family. She follows with Dr. Ma as an outpatient basis recommended to follow up with Dr. Ma in few weeks. Need to hold aspirin for few weeks. Repeat CT scan as an outpatient in 2-3 weeks. Maintain blood pressure less than 140 (3) CKD (chronic kidney disease): Code(s): N18.9 - Chronic kidney disease, unspecified Status: Acute Assessment and Plan: Continue to monitor (4) Face lacerations: Code(s): S01.81XA - Laceration without foreign body of other part of head, initial encounter Status: Acute Assessment and Plan: status post suture local care (5) COPD (chronic obstructive pulmonary disease): Code(s): J44.9 - Chronic obstructive pulmonary disease, unspecified Status: Acute Assessment and Plan: resume home meds not actively wheezing (6) HTN (hypertension): Qualifiers: Hypertension type: essential hypertension Qualified Code(s): I10 - Essential (primary) hypertension Code(s): I10 - Essential (primary) hypertension Status: Acute Assessment and Plan: resume home meds BP this am was 180/61 added hydralazine 10mg b.i.d. and repeat blood pressure after hydralazine given was 128/49 continue to monitor uncontrolled Comfortable with patient being discharged tomorrow pending blood pressure remained stable. (7) GERD (gastroesophageal reflux disease): Qualifiers: Esophagitis presence: without esophagitis Qualified Code(s): K21.9 - Gastro-esophageal reflux disease without esophagitis Code(s): K21.9 - Gastro-esophageal reflux disease without esophagitis Status: Acute Assessment and Plan: PPI Time Spent With Patient Time with patient: 25 - 35 minutes Subjective Date/time seen: 09/12/22 07:45 Interval history: 81-year-old female with a history of hypertension, chronic kidney disease, COPD, hypothyroidism, and iron deficiency anemia. Patient admitted due to syncope with fall. Found to have subarachnoid hemorrhage and history of carotid endarterectomy. Patient states that she feels fine and is ready to go home. Patient denies chest pain, shortness a breath, nausea, vomiting, diarrhea, visual changes, lightheadedness, headache and fever. Review of Systems Review of Systems: All systems reviewed & are unremarkable except as noted in HPI and below Exam Narrative: GENERAL: Comfortable, no acute distress HENMT: Wears glasses, 2 lacerations above left eyebrow with suture placement, moist mucous membranes EYES: EOM intact b/l NECK: no lymphadenopathy RESPIRATORY: clear to auscultation CARDIO: RRR GI: soft, nontender, bowel sounds present SKIN: no rashes EXTREMITIES: no edema, redness or tenderness Objective Data Vital Signs Vital Signs: Vital Signs - 24 hr 09/11/22 08:19 09/11/22 08:00 09/11/22 08:30 Temperature Pulse Rate 66 Respiratory Rate Blood Pressure 182/68 H 153/78 H Pulse Oximetry Oxygen Delivery 09/11/22 09:00 09/11/22 08:00 09/11/22 08:00 Temperature 97.1 F L Pulse Rate 79 90 Respiratory Rate 13 Blood Pressure 206/73 H Pulse Oximetry 96 Oxygen Delivery 09/11/22 10:00 09/11/22 12:00 09/11/22 12:00 [place]
[2022-09-12] MEDS: amLODIPine BESYLATE 5 MG TABLET 10 MG PO (08:23)
[2022-09-12] MEDS: atenoloL 50 MG TABLET PO (08:25)
[2022-09-12] MEDS: MULTIVITAMINS THERAPEUTIC TAB (*BKC) 1 TABLET PO (08:25)
[2022-09-12] MEDS: COLESTIPOL HCL 1 GM TABLET PO ×2 (08:25→21:38)
[2022-09-12] MEDS: ATORVASTATIN 40 MG TABLET PO (08:25)
[2022-09-12] MEDS: FERROUS SULFATE 324 MG TABLET PO (08:26)
[2022-09-12] MEDS: CHOLECALCIFEROL 1,000 UNITS TABLET 1000 UNITS PO (08:26)
[2022-09-12] MEDS: PANTOPRAZOLE 40 MG TABLET PO (08:26)
[2022-09-12] MEDS: UMECLIDINIUM/VILANTEROL 62.5-25 MCG ELLIPTA 1 PUFF INHALATION (10:46)
[2022-09-12] MEDS: hydrALAZINE 10 MG TABLET PO ×2 (12:17→16:56)
[2022-09-13] VITALS (7 sets, daily range): BP systolic 127–153; BP diastolic 55–60; PULSE 74–92; RESP 17–20; TEMP 36.7–36.8; O2SAT 90–92
[2022-09-13 05:27] LABS: Hemoglobin 10.5 g/dL (12.0-15.0); Mean Corpuscular HGB Conc 32.8 g/dl (32-36); Mean Corpuscular Hemoglobin 32.4 pg (26-34); Mean Corpuscular Volume 98.8 fl (80-100); Platelet Count Result 157 k/mm3 (150-375); Red Blood Count 3.24 M/mm3 (4.2-5.4); Red Cell Distribution Width 11.8 % (11.5-14.5); White Blood Count 3.6 K/mm3 (4.5-10.0)
[2022-09-13 05:35] LABS: Anion Gap 6 mmol/L (8-16); Blood Urea Nitrogen 11 mg/dL (7-17); Calcium 9.2 mg/dL (8.4-10.2); Carbon Dioxide 28 mmol/L (22-30); Chloride 106 mmol/L (98-107); Estimated Glomerular Filt Rate 48; Glucose 112 mg/dL (65-110); Potassium 3.7 mmol/L (3.4-5.0); Sodium 140 mmol/L (137-145)
[2022-09-13] MEDS: LEVOTHYROXINE SODIUM 75 MCG TABLET PO (06:29)
--- NOTE | 2022-09-13 07:40 | PM.DS ---
DS: Admitting Diagnosis Discharge Date 08/14/2022 Admitting Diagnosis Fall, subarachnoid hemorrhage, hypertension, syncope DS: Discharge Diagnosis Discharge Diagnosis (1) Subarachnoid hemorrhage: Code(s): I60.9 - Nontraumatic subarachnoid hemorrhage, unspecified Status: Acute (2) Syncope: Code(s): R55 - Syncope and collapse Status: Acute (3) Acute worsening of stage 3 chronic kidney disease: Code(s): N18.30 - Chronic kidney disease, stage 3 unspecified Status: Acute (4) HTN (hypertension): Qualifiers: Hypertension type: essential hypertension Qualified Code(s): I10 - Essential (primary) hypertension Code(s): I10 - Essential (primary) hypertension Status: Acute (5) COPD (chronic obstructive pulmonary disease): Code(s): J44.9 - Chronic obstructive pulmonary disease, unspecified Status: Acute (6) GERD (gastroesophageal reflux disease): Qualifiers: Esophagitis presence: without esophagitis Qualified Code(s): K21.9 - Gastro-esophageal reflux disease without esophagitis Code(s): K21.9 - Gastro-esophageal reflux disease without esophagitis Status: Acute DS: Summary Hospital Course Reason for hospitalization: Subarachnoid hemorrhage, hypertension, syncope Hospital Course: 81-year-old female with a history of CKD, COPD, hypertension and hypothyroidism present to the ER on 09/09/2022 with chief complaint of a fall with loss of consciousness. Patient had ground level fall in which she hit her head and caused laceration to the right temporal forehead. Patient is unsure if she lost consciousness then fell and hit her head or if she hit her head 1st and then lost consciousness. CT head revealed small subarachnoid hemorrhage along a try risks of pain to your right frontal lobe measuring 8 x [address] of the cervical spine no osseous abnormality. On arrival to the ER patient had a blood pressure of 200/61. Patient is status post carotid enterectomy. Cardiology and Neurology consulted. Repeat head CT on 09/10/2022 revealed no changes and subarachnoid hemorrhage stable. Goal to maintain systolic BP less than 140, home aspirin held and recommended CTA and carotid. Orthostatics monitored, telemetry applied and compression stockings used during stay. Carotid Doppler revealed less than 50% stenosis in the right and left internal carotid arteries, right common carotid artery revealed more proximal hemodynamically significant stenosis. 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 To maintain a systolic blood pressure under 140, hydralazine 10 mg b.i.d. scheduled was prescribed. Patient's blood pressure has remained stable with systolic BP in the 120s. Patient is to follow-up with a repeat CT scan as an outpatient in 2-3 weeks and if stable can resume aspirin at time. Recommend follow-up with Dr. Hubbard as an outpatient to review CT scan results. Time Spent with Patient Time attestation: Total time spent providing and/or coordinating discharge services: Exam Narrative: GENERAL: Comfortable, no acute distress HENMT: Wears glasses, 2 lacerations above left eyebrow with suture placement, moist mucous membranes EYES: EOM intact b/l NECK: no lymphadenopathy RESPIRATORY: clear to auscultation CARDIO: RRR GI: soft, nontender, bowel sounds present SKIN: no rashes EXTREMITIES: no edema, redness or tenderness DS: Data Data Completed and Pending Labs on day of discharge: Labs from last 24 hours 09/13/22 09/13/22 04:52 04:52 WBC 3.6 L RBC 3.24 L Hgb 10.5 L Hct 32.0 L MCV 98.8 MCH 32.4 MCHC 32.8 RDW 11.8 Plt Count 157 MPV 11.0 H Sodium 140 Potassium 3.7 Chloride 106 Carbon Dioxide 28 Anion Gap 6 L BUN 11 Creatinine 1.10 H Estim Creat Clear Calc Not Reportable Estimated GFR 48 L Glucose 112 H Calcium 9.2 Discharge Plan
[2022-09-13] MEDS: PANTOPRAZOLE 40 MG TABLET PO (08:03)
[2022-09-13] MEDS: amLODIPine BESYLATE 5 MG TABLET 10 MG PO (08:03)
[2022-09-13] MEDS: ATORVASTATIN 40 MG TABLET PO (08:04)
[2022-09-13] MEDS: hydrALAZINE 10 MG TABLET PO (08:04)
[2022-09-13] MEDS: CHOLECALCIFEROL 1,000 UNITS TABLET 1000 UNITS PO (08:04)
[2022-09-13] MEDS: FERROUS SULFATE 324 MG TABLET PO (08:04)
[2022-09-13] MEDS: atenoloL 50 MG TABLET PO (08:04)
[2022-09-13] MEDS: COLESTIPOL HCL 1 GM TABLET PO (08:04)
[2022-09-13] MEDS: MULTIVITAMINS THERAPEUTIC TAB (*BKC) 1 TABLET PO (08:05)
== END 2022-09-13 12:35 | disposition home or self-care (01) | DRG 84 ==
LOC: ANHED 23:21 → ANHIMU 09-10 04:01 → ANH2MED 09-11 15:20
PROVIDERS: Internal Medicine; Admitting Provider Internal Medicine; Emergency Provider Emergency Medicine; PCP Emergency Medicine; Visit Provider Internal Medicine Critical Care Medicine
DX: S06.6X9A Traumatic subarachnoid hemorrhage with loss of consciousness of unspecified duration, initial encounter (principal); R55 Syncope and collapse; S01.81XA Laceration without foreign body of other part of head, initial encounter; W18.30XA Fall on same level, unspecified, initial encounter; J44.9 Chronic obstructive pulmonary disease, unspecified; K21.9 Gastro-esophageal reflux disease without esophagitis; N18.30 Chronic kidney disease, stage 3 unspecified; I12.9 Hypertensive chronic kidney disease with stage 1 through stage 4 chronic kidney disease, or unspecified chronic kidney disease; E03.9 Hypothyroidism, unspecified; E86.0 Dehydration; Z66 Do not resuscitate; I77.9 Disorder of arteries and arterioles, unspecified; D50.9 Iron deficiency anemia, unspecified; E78.5 Hyperlipidemia, unspecified; Z85.3 Personal history of malignant neoplasm of breast; Z79.890 Hormone replacement therapy; Z79.82 Long term (current) use of aspirin; Z90.710 Acquired absence of both cervix and uterus; Z87.891 Personal history of nicotine dependence
CPT/HCPCS: 12013; 36415; 70450; 70496; 70498; 71045; 72125; 73100; 80048; 80053; 83735; 84484; 85025; 85027; 85055; 85610; 85730; 93005; 93306; 93880; 94640; 96374; 96375; 97161; 97165; 99285; A9270; J2270; J2405; J7030; Q9967

== ENCOUNTER 2022-09-27 08:03 | Outpatient (CLI) | payer MEDICARE, OTHER, SELFPAY ==
--- NOTE | ~2022-09-27 | CT_ITS ---
EXAMINATION: CT brain wo con DATE: 09/27/2022 08:21 INDICATION: Subarachnoid hemorrhage follow-up TECHNIQUE: Computed tomography (CT) of the head was performed without intravenous contrast. The mA wa s adjusted according to patient size. Iterative reconstruction technique was employed. Exam dose: 60 5.33 mGy-cm total exam DLP. COMPARISON: 09/10/2022 CTA brain carotid 09/10/2022 CT brain 09/09/2022 CT brain FINDINGS: There is prominent calcification of the vertebral arteries, basilar artery and carotid siph on internal carotid arteries. There is nonspecific diminished attenuation of the cerebral white matte r, likely due to chronic small vessel ischemic changes. There is central and cortical cerebral atrophy. No intracranial mass lesion or hemorrhage or cerebrovascular accident is detected. No midline shift o r mass effect. Resolution of previously reported focal subarachnoid hemorrhage in the right frontal area since 09/10. No subdural or epidural hematoma. The paranasal sinuses are unremarkable. Status post left mastoidectomy. IMPRESSION: Resolution of small focus of previously reported subarachnoid hemorrhage in the right fr ontal area since 09/10/2022 Reviewed, dictated and finalized at [facility] Reviewed, dictated and finalized at [facility]. STAFF NURSE IMPRESSION: Resolution of small focus of previously reported subarachnoid hemo rrhage in the right frontal area since 09/10/2022
== END 2022-09-27 08:04 | disposition home or self-care (01) ==
LOC: ANHIMG 08:05
PROVIDERS: PCP Emergency Medicine; Visit Provider Emergency Medicine
DX: I60.9 Nontraumatic subarachnoid hemorrhage, unspecified (principal)
CPT/HCPCS: 70450

== ENCOUNTER 2022-12-04 07:32 | Outpatient (CLI) | payer MEDICARE, OTHER, SELFPAY ==
--- NOTE | 2022-12-04 | ECHO_ITS ---
Patient Info Name: Bela Spangler Age: 82 years : 1940 Gender: Female Ht: 59 in Wt: 120 lbs BSA: 1.52 m2 HR: 75 bpm BP: 183 / 92 mmHg Heart Rhythm: Sinus Rhythm Exam Date: 12/04/2022 8:09 AM Exam Location: [facility] Patient Status: Outpatient Admit Date: 12/04/2022 Staff Ordering Physician: ViridianaGeneva APRN Geographic Information System Surveyor: Nicolas Huddleston, SARKIS, RT Attending Provider: [place], Geneva Robles APRN Referring Physician: Viridiana POOL; Exam Type: CA echo doppler color flow Study Info Indications R01.1 - Cardiac murmur, unspecified Complete two-dimensional, color flow and Doppler transthoracic echocardiogram is performed. Strain analysis performed. Summary 1. Complete two-dimensional, color flow and Doppler transthoracic echocardiogram is performed. 2. Left ventricular chamber dimension is normal. 3. Left ventricular systolic function is normal, estimated at >70%. 4. There is mildly increased left ventricular wall thickness. 5. The left ventricular diastolic function is grade I diastolic dysfunction. 6. Right ventricular systolic function is normal. 7. There is mild aortic valve regurgitation. 8. There is mild mitral valve regurgitation. 9. There is mild tricuspid valve regurgitation. Left Ventricle Left ventricular chamber dimension is normal. Left ventricular systolic function is normal, estimated at >70%. There is mildly increased left ventricular wall thickness. The left ventricular diastolic function is grade I diastolic dysfunction. Global longitudinal strain is abnormal at -11 %. Right Ventricle Right ventricular chamber dimension is normal. Right ventricular systolic function is normal. Left Atria Left atrial chamber dimension is normal. Right Atria Right atrial chamber dimension is normal. Atrial Septum Intact interatrial septum visualized by color flow imaging. Aortic Valve The aortic valve is trileaflet. There is moderate aortic valve sclerosis. There is no aortic valve stenosis. There is mild aortic valve regurgitation. There is mild aortic valve calcification. Pulmonic Valve The pulmonic valve is not well visualized. There is trace pulmonic regurgitation. Mitral Valve The mitral valve has normal leaflets. There is no mitral valve stenosis. There is mild mitral valve regurgitation. The mitral valve annulus is mildly calcified. Tricuspid Valve There is no significant tricuspid valve stenosis. There is mild tricuspid valve regurgitation. Pericardium/Pleural There is small anterior pericardial effusion. Inferior Vena Cava Normal inferior vena cava with >50% collapse upon inspiration consistent with normal right atrial pressure, 3 mmHg. Aorta The aortic root size at the sinus of Valsalva is normal. Left Ventricular Outflow Tract Name Value Normal LVOT 2D LVOT Diameter 2.1 cm LVOT Doppler LVOT Peak Gradient 4 mmHg LVOT Mean Gradient 2 mmHg LVOT VTI 23 cm LVOT VTI/AV VTI Ratio 0.9 LVOT Stroke Volum
== END 2022-12-04 07:33 | disposition home or self-care (01) ==
PROVIDERS: PCP Emergency Medicine; Visit Provider Nurse Practitioner Family
DX: Z51.81 Encounter for therapeutic drug level monitoring (principal); Z79.899 Other long term (current) drug therapy; I34.0 Nonrheumatic mitral (valve) insufficiency; I35.1 Nonrheumatic aortic (valve) insufficiency; I36.1 Nonrheumatic tricuspid (valve) insufficiency
CPT/HCPCS: 93306

== ENCOUNTER 2023-03-28 09:20 | Outpatient (CLI) | payer MEDICARE, OTHER, SELFPAY ==
--- NOTE | 2023-03-28 | ECHO_ITS ---
Patient Info Name: Bela Spangler Age: 82 years : 1940 Gender: Female Ht: 60 in Wt: 131 lbs BSA: 1.60 m2 HR: 79 bpm BP: 130 / 71 mmHg Heart Rhythm: Sinus Rhythm Technical Quality: Fair Exam Date: 03/28/2023 9:56 AM Exam Location: [facility] Patient Status: Outpatient Admit Date: 03/28/2023 Staff Ordering Physician: Virgilio Hernandez Front End Loader Driver: Eliza Schaffer RDCS Attending Provider: Virgilio Hernandez Exam Type: CA echo doppler color flow Study Info Indications Z79.899 - HIGH RISK MEDICATION USE, EVAL EF AND HEART STRAIN Complete two-dimensional, color flow and Doppler transthoracic echocardiogram is performed. Strain analysis performed. Summary 1. Complete two-dimensional, color flow and Doppler transthoracic echocardiogram is performed. 2. Left ventricular chamber dimension is normal. 3. Left ventricular systolic function is normal, estimated at 65-70%. 4. The left ventricular diastolic function is grade I diastolic dysfunction. 5. Global longitudinal strain is abnormal at -14 %. 6. Right ventricular systolic function is normal. 7. Left atrial chamber dimension is severely enlarged. 8. There is trace aortic valve regurgitation. 9. There is mild mitral valve regurgitation. 10. There is mild tricuspid valve regurgitation. 11. Estimated pulmonary arterial systolic pressure is 36 mmHg. 12. There is small anterior pericardial effusion. Left Ventricle Left ventricular chamber dimension is normal. Left ventricular systolic function is normal, estimated at 65-70%. There is no increased left ventricular wall thickness. The left ventricular diastolic function is grade I diastolic dysfunction. Global longitudinal strain is abnormal at -14 %. Right Ventricle Right ventricular chamber dimension is normal. Right ventricular systolic function is normal. Left Atria Left atrial chamber dimension is severely enlarged. Right Atria Right atrial chamber dimension is normal. Atrial Septum Intact interatrial septum visualized by color flow imaging. Aortic Valve The aortic valve is trileaflet. There is no aortic valve stenosis. There is trace aortic valve regurgitation. There is mild aortic valve calcification. Pulmonic Valve The pulmonic valve is not well visualized. Mitral Valve There is mild mitral valve regurgitation. The mitral valve annulus is mildly calcified. Tricuspid Valve There is mild tricuspid valve regurgitation. Estimated pulmonary arterial systolic pressure is 36 mmHg. Pericardium/Pleural There is small anterior pericardial effusion. Inferior Vena Cava Normal inferior vena cava with >50% collapse upon inspiration consistent with normal right atrial pressure, 3 mmHg. Aorta The aortic root size at the sinus of Valsalva is normal. Left Ventricular Outflow Tract Name Value Normal LVOT 2D LVOT Diameter 1.9 cm LVOT Doppler LVOT Peak Gradient 6 mmHg LVOT Mean Gradient 4 mmHg LVOT VTI 32 cm LVOT VTI/AV VTI Ratio 1.0 LVOT Stroke Volume 88 ml LVOT CO 5.8 l/min LVOT CI
== END 2023-03-28 09:21 | disposition home or self-care (01) ==
LOC: ANHCARD 09:21
PROVIDERS: PCP Emergency Medicine
DX: Z79.899 Other long term (current) drug therapy (principal); I34.0 Nonrheumatic mitral (valve) insufficiency; I36.1 Nonrheumatic tricuspid (valve) insufficiency
CPT/HCPCS: 93306